=== PATIENT | male | born 1950 | race Caucasian/White ===

== ENCOUNTER 2024-11-29 13:10 | Day surgery (SDC) | payer MEDICARE ==
[~2024-11-29] VITALS: Ht 182.9 cm; Wt 81.1 kg
[2024-11-29] MEDS ORDERED: AVAPRO75 MG (13:24)
[2024-11-29] MEDS ORDERED: Lactated Ringer's 1,000 ML IV ONE ×2 (14:02→14:29)
[2024-11-29] MEDS ORDERED: propofoL 50 ML IV ONE (14:29)
[2024-11-29 15:29] VITALS: BP 116/75
== END 2024-11-29 15:20 | disposition home or self-care (01) ==
LOC: ORSCSDS 13:10
PROVIDERS: Surgery
PROC: 0DBM8ZX Excision of Descending Colon, Via Natural or Artificial Opening Endoscopic, Diagnostic (ICD-10-PCS; principal; 2024-11-29 14:45)
DX: Z12.11 Encounter for screening for malignant neoplasm of colon (principal); Z86.0101 Personal history of adenomatous and serrated colon polyps; K63.5 Polyp of colon; E78.5 Hyperlipidemia, unspecified; I10 Essential (primary) hypertension; Z79.899 Other long term (current) drug therapy
CPT/HCPCS: 88305; J2704; J7120